=== PATIENT | male | born 1950 | race Asian ===

== ENCOUNTER 2024-09-25 02:29 | Emergency (ER) | payer OTHER ==
[~2024-09-25] VITALS: Ht 180.3 cm; Wt 76.8 kg
[2024-09-25 02:39] VITALS: BP 122/78; PULSE 96; RESP 18; TEMP 98.7; O2SAT 96
[2024-09-25] MEDS ORDERED: PIOG30TA10 PO (02:51)
[2024-09-25] MEDS ORDERED: INSLAN SQ (02:51)
[2024-09-25] MEDS ORDERED: ASPI-1450 PO (02:51)
[2024-09-25] MEDS ORDERED: METF-1211 PO (02:51)
[2024-09-25] MEDS ORDERED: LISI-892 PO (02:51)
[2024-09-25] MEDS ORDERED: ATOR20TA PO (02:51)
[2024-09-25] MEDS ORDERED: EMPA25TA3 PO (02:51)
[2024-09-25] MEDS ORDERED: DORZ10DR10 OU (02:51)
[2024-09-25] MEDS: ACETAMINOPHEN 325 MG TABLET PO ONE (03:34)
[2024-09-25] MEDS: KETOROLAC TROMETHAMINE 30 MG/ML VIAL IM ONE (03:35)
[2024-09-25] MEDS: LIDOCAINE 5% TRANSDERMAL PATCH TD ONE (03:35)
== END 2024-09-25 05:52 ==
LOC: EMS 02:31
DX: M54.50 Low back pain, unspecified (principal); R11.10 Vomiting, unspecified; E11.9 Type 2 diabetes mellitus without complications; I10 Essential (primary) hypertension; E78.5 Hyperlipidemia, unspecified; Z79.4 Long term (current) use of insulin; Z79.82 Long term (current) use of aspirin; Z79.84 Long term (current) use of oral hypoglycemic drugs; Z79.899 Other long term (current) drug therapy
CPT/HCPCS: 99283; 72100; 96372; J1885